=== PATIENT | female | born 1985 | race Caucasian/White ===

== ENCOUNTER 2017-11-12 10:23 | Emergency (ER) | payer OTHER ==
--- NOTE | 2017-11-12 10:56 | EDPHY ---
H & P Stated Complaint: L JAW PAIN INTERMITTENTLY X 1 YEAR/L ARM PAIN SINCE SATURDAY - Personal History LMP (Females 10-55): 15-21 Days Ago Current Tetanus Diphtheria and Acellular Pertussis (TDAP): Yes - Medical/Surgical History Hx Asthma: No Hx Chronic Respiratory Disease: No Hx Diabetes: No Hx Cardiac Disease: No Hx Renal Disease: No Hx Cirrhosis: No Hx Alcoholism: No Hx HIV/AIDS: No Hx Splenectomy or Spleen Trauma: No Other PMH: DENIES - Social History Smoking Status: Never smoked Time Seen by Provider: 11/12/17 10:39 HPI/ROS: CHIEF COMPLAINT: left upper extremity pain, jaw pain HISTORY OF PRESENT ILLNESS: 31-year-old female complaining of 1 year of intermittent left mandible pain. She notes no definitive pattern, occurs seemingly randomly. It is not associated with exertional activities. She has spoke with her dentist about this, has been given a ocean lifeguard specialist which did not effect any change. Yesterday afternoon while cooking dinner approximately 4:15 p.m. she noticed her left mandible pain but also noticed left arm pain which lasted approximately 10 min. It was not associated with chest pain, dyspnea, diaphoresis, syncope, near syncope. Today she contact her PCPs office and they recommend to the ER for cardiac evaluation. The patient last exercised yesterday, doing 40 min of cardiovascular activity and did not experience chest pain, arm pain, jaw pain, syncope, near-syncope, chest pain with exertion, dyspnea with exertion beyond that expected with exercise. Several years ago patient experienced right mandible pain and was diagnosed with possible trigeminal neuralgia. REVIEW OF SYSTEMS: A ten point review of systems was performed and is negative with the exception of the items mentioned in the HPI PAST MEDICAL & SURGICAL HISTORY: No pertinent medical or surgical history SOCIAL HISTORY: Nonsmoker. No drug use. FAMILY HISTORY:No family history of premature coronary artery disease , no family history of coagulopathic disorder PHYSICAL EXAM (Prior to examination, patient consented to physical exam, hands were washed and my usual and customary physical exam procedures followed) 1) GENERAL: Well-developed, well-nourished, alert and oriented. Appears to be in no acute distress. 2) HEAD: Normocephalic, atraumatic 3) HEENT: Pupils equal, round, reactive to light bilaterally. Sclera anicteric. Nasopharynx, oropharynx, clear, no lesions. Bilateral TMJ nontender. No clicking or popping or crepitus. No gross instability. No facial lesions, nose signs of zoster. Ears bilaterally with normal tympanic membranes. 4) NECK: Full range of motion, no meningeal signs. No carotid bruit 5) LUNGS: Clear auscultation bilaterally, no wheezes, no rhonchi, no retractions. 6) HEART: Regular rate and rhythm, no murmur, no heave, no gallop. 7) ABDOMEN: No guarding, no rebound, no focal tenderness, negative McBurney's, negative Bowens's, negative Rovsing's, negative peritoneal sign, 8) MUSCULOSKELETAL: Left upper extremity has no pain with range of motion, no shoulder pain, normal coloration temperature distally with brisk pulses and brisk capillary refill bilaterally. No asymmetry. Soft compartments. Moving all extremities, no focal areas of tenderness, no obvious trauma. No peripheral edema or discoloration. 9) BACK: No CVA tenderness, no midline vertebral tenderness, no fluctuance, no step-off, no obvious trauma, no visual or palpable abnormality. 10) SKIN: No rash, no petechiae. 11) Psychiatric: Patient is oriented X 3, there is no agitation. DIFFERENTIAL DIAGNOSIS: In no particular order, including but not limited to TMJ pathology, trigeminal neuralgia, cervical pathology myocardial ischemia, pulmonary embolus, chest wall pain, pleural inflammation and pulmonary infectious causes. (Benjamin Monroe) Constitutional: Initial Vital Signs Temperature (C) 36.7 C 11/12/17 10:31 Heart Rate 68 11/12/17 10:31 Respiratory Rate 18 11/12/17 10:31 Blood Pressure 132/95 H 11/12/17 10:31 O2 Sat (%) 97 11/12/17 10:31 O2 Delivery Mode Room Air Allergies/Adverse Reactions: No Known Allergies Allergy (Unverified 11/12/17 10:30) Home Medications: Medication Instructions Recorded Multivitamin (*) 11/12/17 Medical Decision Making - Diagnostics EKG Interpretation: EKG: Complete interpretation has been separately recorded in the [facility] archive. Summary impression: Sinus rhythm, rate 66 (Audie Blanc) Imaging Results: Imaging Impressions Chest X-Ray 11/12/17 10:51 Impression: Normal chest x-ray. ED Course/Re-evaluation: 10:52 a.m.: This patient is low probability for pulmonary embolus, has a negative PERC score. We discussed possibility of cardiac pathology with lack of risk factors. Will obtain laboratory studies EKG and troponin. I think that the patient's 1 year history of self-described seemingly random recurrence of her left mandible pain is less than likely cardiac pathology. We discussed possibility of trigeminal neuralgia, possibility TMJ pathology. 12:14 p.m. re-evaluation. Discussed her laboratory results including negative troponin. I think that [place] is less than likely. Discussed multiple possible pathologies including, but not limited to, trigeminal neuralgia, TMJ pathology, shoulder/orthopedic pathology. Doubt cervical radiculopathy. Plan will be discharge. Given my usual and customary discharge precautions and instructions. She feels comfortable being discharged home. (Benjamin Monroe) Other Provider: PHYSICIAN DOCUMENTATION: The patient was evaluated and managed by the Physician Formula Clerk. My co- signature indicates that I have reviewed this chart and I agree with the findings and plan of care as documented. I am the secondary supervising physician. (Audie Blanc) - Data Points Laboratory Results: Laboratory Results 11/12/17 11:20 11/12/17 11:20 11/12/17 11/12/17 11/12/17 11:30 11:20 11:20 WBC RBC Hgb Hct MCV MCH MCHC RDW Plt Count MPV Neut % (Auto) Lymph % (Auto) Prentiss % (Auto) Eos % (Auto) Baso % (Auto) Nucleat RBC Rel Count Absolute Neuts (auto) Absolute Lymphs (auto) Absolute Monos (auto) Absolute Eos (auto) Absolute Basos (auto) Absolute Nucleated RBC Immature Gran % Immature Gran # Sodium 137 mEq/L mEq/L (135-145) Potassium 4.0 mEq/L mEq/L (3.3-5.0) Chloride 105 mEq/L mEq/L (97-110) Carbon Dioxide 25 mEq/l mEq/l (22-31) Anion Gap 7 mEq/L L mEq/L (8-16) BUN 5 mg/dL L mg/dL (7-23) Creatinine 0.6 mg/dL mg/dL (0.6-1.0) Estimated GFR > 60 Glucose 88 mg/dL mg/dL (70-100) Calcium 8.8 mg/dL mg/dL (8.5-10.4) POC Troponin I 0.00 ng/mL ng/mL (0.00-0.08) Beta HCG, Qual NEGATIVE 11/12/17 11:20 WBC 5.12 10^3/uL 10^3/uL (3.80-9.50) RBC 4.19 10^6/uL 10^6/uL (4.18-5.33) Hgb 12.8 g/dL g/dL (12.6-16.3) Hct 39.1 % % (38.0-47.0) MCV 93.3 fL fL (81.5-99.8) MCH 30.5 pg pg (27.9-34.1) MCHC 32.7 g/dL g/dL (32.4-36.7) RDW 11.9 % % (11.5-15.2) Plt Count 251 10^3/uL 10^3/uL (150-400) MPV 8.8 fL fL (8.7-11.7) Neut % (Auto) 57.2 % % (39.3-74.2) Lymph % (Auto) 33.0 % % (15.0-45.0) Prentiss % (Auto) 6.6 % % (4.5-13.0) Eos % (Auto) 2.0 % % (0.6-7.6) Baso % (Auto) 1.0 % % (0.3-1.7) Nucleat RBC Rel Count 0.0 % % (0.0-0.2) Absolute Neuts (auto) 2.93 10^3/uL 10^3/uL (1.70-6.50) Absolute Lymphs (auto) 1.69 10^3/uL 10^3/uL (1.00-3.00) Absolute Monos (auto) 0.34 10^3/uL 10^3/uL (0.30-0.80) Absolute Eos (auto) 0.10 10^3/uL 10^3/uL (0.03-0.40) Absolute Basos (auto) 0.05 10^3/uL 10^3/uL (0.02-0.10) Absolute Nucleated RBC 0.00 10^3/uL 10^3/uL (0-0.01) Immature Gran % 0.2 % % (0.0-1.1) Immature Gran # 0.01 10^3/uL 10^3/uL (0.00-0.10) Sodium Potassium Chloride Carbon Dioxide Anion Gap BUN Creatinine Estimated GFR Glucose Calcium POC Troponin I Beta HCG, Qual Point of Care Test Results: Chemistry 11/12/17 11:30 POC Troponin I 0.00 ng/mL ng/mL (0.00-0.08) Departure - Departure Disposition: Home, Routine, Self-Care Clinical Impression: Chronic jaw pain Condition: Good Instructions: Temporomandibular Disorder (ED) Additional Instructions: Seek medical attention if you develop new or worsening chest pain, if you develop new or worsening shortness of breath, or any other symptoms that concern you. Referrals: Rosemarie Mendoza MD [Primary Care Provider] - 1-2 days without fail Derian Varela DDS [Doctor of Dental Surgery] - 1-2 days without fail
--- NOTE | 2017-11-12 11:02 | CPEKG ---
Heart Rate: 66 RR Interval: 909 P-R Interval: 140 QRSD Interval: 90 QT Interval: 408 QTC Interval: 428 P [place]: 55 QRS [place]: 16 T Wave [place]: 15 EKG Severity - NORMAL ECG - EKG Impression: SINUS RHYTHM Electronically Signed By: Audie Blanc 12-Nov-2017 11:03:21
[2017-11-12 11:35] LABS: PLATELET COUNT 251 10^3/uL (150-400)
[2017-11-12 12:25] VITALS: BP 115/80
== END 2017-11-12 12:26 | disposition home or self-care (01) ==
DX: R68.84 Jaw pain (principal); G89.29 Other chronic pain
CPT/HCPCS: 84484-PO

== ENCOUNTER → 2018-07-17 | Outpatient (CLI) | payer OTHER | LOC: BMCIMAGING 11:15 | PROVIDERS: ATTEND Family Medicine | DX: K59.00 Constipation, unspecified (principal) ==